=== PATIENT | male | born 1965 | race Two or more races ===

== ENCOUNTER 2017-04-07 10:02 | Emergency (ER) | payer OTHER ==
[~2017-04-07] VITALS: Ht 170.2 cm; Wt 72.6 kg
[2017-04-07 10:02] VITALS: BP 145/79
[2017-04-07 10:22] VITALS: BP 145/79
--- NOTE | 2017-04-07 11:16 | Emergency Room Report ---
History of Present Illness General Chief Complaint: Medical Clearance Source: Patient Present Illness HPI 51-year-old male presents ED for intermediate clearance. Patient is in police custody. Patient was found inside a room with several cleaning chemicals. States there is not proper ventilation in the room. Upon arrival patient states he feels fine. Denies any difficulty breathing or shortness of breath. Denies any chest pain. Denies cough. No other aggravating or relieving factors. Denies any other associated symptoms Allergies: Coded Allergies: No Known Allergies (Unverified , 04/07/17) Patient History Past Medical History: none Past Surgical History: none Pertinent Family History: none Social History: Denies: smoking, alcohol use, drug use Immunizations: UTD Reviewed Nursing Documentation: PMH: Agreed, PSxH: Agreed Nursing Documentation-PMH Past Medical History: No Stated History Review of Systems All Other Systems: negative except mentioned in HPI Physical Exam Vital Signs Date Time Temp Pulse Resp B/P (MAP) Pulse Ox O2 Delivery O2 Flow Rate FiO2 04/07/17 09:53 99.1 103 20 145/79 97 Room Air Sp02 EP Interpretation: reviewed, normal General Appearance: no apparent distress, alert, GCS 15, non-toxic Head: normocephalic, atraumatic Eyes: bilateral eye normal inspection, bilateral eye PERRL ENT: hearing grossly normal, normal pharynx, no angioedema, normal voice Neck: full range of motion, supple/symm/no masses Respiratory: chest non-tender, lungs clear, normal breath sounds, speaking full sentences Cardiovascular #1: regular rate, rhythm, no edema Cardiovascular #2: 2+ carotid (R), 2+ carotid (L), 2+ radial (R), 2+ radial (L) , 2+ dorsalis pedis (R), 2+ dorsalis pedis (L) Gastrointestinal: normal bowel sounds, non tender, soft, non-distended, no guarding, no rebound Rectal: deferred Genitourinary: normal inspection, no CVA tenderness Musculoskeletal: back normal, gait/station normal, normal range of motion, non- tender Neurologic: alert, oriented x3, responsive, motor strength/tone normal, sensory intact, speech normal Psychiatric: judgement/insight normal, memory normal, mood/affect normal, no suicidal/homicidal ideation Reflexes: 3+ bicep (R), 3+ bicep (L), 3+ tricep (R), 3+ tricep (L), 3+ knee (R) , 3+ knee (L) Skin: normal color, no rash, warm/dry, well hydrated Lymphatic: no adenopathy Medical Decision Making Diagnostic Impression: Primary Impression: Medical clearance for incarceration ER Course Hospital Course 51-year-old male presents to ED for intermediate clearance. Denies any complaints or injuries prior to arrival Clinical course Patient placed on stretcher. Handcuffs. After initial history, physical exam reveals a male in no acute distress. physical exam was unremarkable. I believe patient be safely discharged into police custody. Diagnosis - medical clearance for incarceration stable and discharged into police custody Last Vital Signs Date Time Temp Pulse Resp B/P (MAP) Pulse Ox O2 Delivery O2 Flow Rate FiO2 04/07/17 10:22 99.1 20 145/79 97 Room Air 04/07/17 10:02 80 Status: improved Disposition: D/C TO LAW ENFORCEMENT IN CUST Condition: Stable Departure Forms: Intermediate Clearance Patient Instructions: Chemical Inhalation Injury JOSE A LARA M.D. Apr 07, 2017 11:16
== END 2017-04-07 10:22 ==
LOC: EDBD 10:02 → EMR 10:15
DX: Z02.89 Encounter for other administrative examinations (principal)
CPT/HCPCS: 99283